=== PATIENT | female | born 2000 | race African-American/Black ===

== ENCOUNTER 2025-01-04 08:42 | Outpatient (REF) | payer MEDICAID, SELFPAY ==
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
--- OUTSIDE RECORDS SUMMARY | 2025-01-04 08:57 | XMS_ITS | Encounter Summary ---
Author Organization [employer] Address [address] [facility] [address] [place] [address] Care Team Providers Care Hog Cutter Name Role Phone Tucker Stern MD Primary Care Prov ider Encounter Details Date Type Department Care Team (Latest Contact Info) Description 01/03/2025 Travel Social History Tobacco Use Types Packs/Day Years Used Date Smoking Tobacco: Never Smokeless Tobacco: Never Alcohol Use Standard Drinks/Week Comments Yes 0 (1 standard drink = 0.6 oz pur e alcohol) socially Comments No Sex and Gender Information Value Date Recorded Sex Assigned at Female 01/02/2025 3:13 PM EDT Legal Sex Female 12:11 PM EST Gender Identity Female 01/02/2025 3:13 PM EDT Sexual Orientation Don't know 01/02/2025 3: 13 PM EDT documented as of this encounter Plan of Treatment Not on file documented as of this encounter Visit Diagnoses Not on filedocumented in this encounter Care Teams Hog Cutter Relationship Specialty Start Date End Date Tucker Stern MD [address] [place] [id number] PCP - General Internal Medicine 01/03/25 documented as of this encounter
[2025-01-04 14:13] LABS: MANUAL DIFF FLAG NO
[2025-01-04 14:21] LABS: Basophils Percent Auto 0.4 % (0-2); Eosinophils Percent Auto 0.5 % (0-4); Hematocrit 37.1 % (37.0-47.0); Hemoglobin 12.5 g/dl (12.0-16.0); Imm Gran Abs Auto 0.01 X10*3/uL (0.00-0.03); Imm Gran Pct Auto 0.2 % (0.0-0.4); Lymphocytes Absolute Auto 2.4 X10*3/uL (1.2-4.9); Lymphocytes Percent Auto 42.7 % (20-40); Mean Corpuscular HGB Conc 33.7 g/dl (31.0-35.0); Mean Corpuscular Hemoglobin 33.2 pg (27.0-33.0); Mean Corpuscular Volume 98.4 fL (80.0-98.0); Mean Platelet Volume 9.8 fL (9.4-12.3); Monocytes Absolute Auto 0.6 X10*3/uL (0.1-1.2); Neutrophils Absolute Auto 2.6 x10*3/uL (2.0-8.3); Neutrophils Percent Auto 46.2 % (45-73); Platelet Count 238 X10*3/uL (160-400); Red Blood Count 3.77 X10*6/uL (4.20-5.50); Red Cell Distribution Width 11.7 % (11.0-16.0); White Blood Count 5.6 X10*3/uL (4.8-10.8)
[2025-01-04 14:27] LABS: Estimated Average Glucose 82 mg/dL; Hemoglobin A1C 85.8112 umol/L; Hemoglobin A1c % 4.5 % (<6.0); Total Hemoglobin (HGBA1C) 3332.2996 umol/L
[2025-01-04 14:37] LABS: Alanine Aminotransferase 21 U/L (0-31); Albumin Level 4.3 g/dL (3.5-5.0); Alkaline Phosphatase 57 U/L (39-117); Anion Gap 8 (12-20); Aspartate Amino Transferase 38 U/L (5-31); Bilirubin Total 0.8 mg/dL (0.0-1.0); Blood Urea Nitrogen 8 mg/dL (9-16); Calcium 9.6 mg/dL (8.4-10.2); Carbon Dioxide 27 mmol/L (22-29); Chloride 106 mmol/L (96-108); Cholesterol 106 mg/dL (<200); Estimated Glomerular Filt Rate > 60; Glucose Random 90 mg/dL (60-115); HDL Cholesterol 49 mg/dL (>40); LDL Cholesterol Calculated 49 mg/dL (<100); Potassium 3.8 mmol/L (3.3-5.1); Sodium 137 mmol/L (135-145); Total Protein 7.8 g/dL (6.5-8.0); Triglycerides 41 mg/dL (<150)
[2025-01-04 14:45] LABS: TSH reflex Free T4 0.65 uIU/mL (0.32-4.0)
[2025-01-04 14:55] LABS: HBS Num1 981.26 mIU/mL (0-7.99); HBc Num1 0.21 S/CO (0.00-0.79); HBsAGNum1 0.38 S/CO (0.00-0.99); HIV AB/AG Nonreactive (Nonreactive); HIV Num 1 0.07 S/CO (0.00-0.99); Hepatitis B Core Antibody Nonreactive (Nonreactive); Hepatitis B Surface Antigen Negative (Negative); ~HepC Num1 0.11 S/CO (0.00-0.79); ~Hepatitis B Surface Antibody REACTIVE (Nonreactive); ~Hepatitis C Antibody Nonreactive (Nonreactive)
[2025-01-07 18:28] LABS: TS Negative Control Passed; TS Panel A 0; TS Panel B 0; TS Positive Control Passed; TSpotTB Negative (Negative)
[2025-01-08 07:59] LABS: Hepatitis A Antibody IgM 0.14 Index (0-0.79); ~Hepatitis A Antibody IgM Nonreactive (Nonreactive)
[2025-01-08 22:04] LABS: Varicella IgG Antibody <1.00 S/CO
== END 2025-01-04 08:43 | disposition home or self-care (01) ==
LOC: HO.CHCLDS 08:42
PROVIDERS: Visit Provider Internal Medicine
DX: Z00.00 Encounter for general adult medical examination without abnormal findings (principal); Z11.1 Encounter for screening for respiratory tuberculosis
CPT/HCPCS: 36415; 80053; 80061; 83036; 84443; 85025; 86481; 86704; 86706; 86709; 86735; 86762; 86765; 86787; 86803; 87340; 87389

== ENCOUNTER 2025-03-05 10:58 | Outpatient (REF) | payer MEDICAID, SELFPAY ==
[2025-03-06 08:23] LABS: HBS Num1 > 1000.00 mIU/mL (0-7.99); ~Hepatitis B Surface Antibody REACTIVE (Nonreactive)
== END 2025-03-05 10:59 | disposition home or self-care (01) ==
LOC: HO.CHCLDS 10:58
PROVIDERS: Visit Provider Internal Medicine
DX: Z12.4 Encounter for screening for malignant neoplasm of cervix (principal)
CPT/HCPCS: 36415; 86706; 87491; 87591; 87626; 87661; 88175

== ENCOUNTER 2025-03-05 12:25 | Outpatient (REF) | payer MEDICAID, SELFPAY ==
[2025-03-06 21:58] LABS: C. trachomatis RNA TMA NOT DETECTED (NOT DETECTED); N. gonorrhoeae RNA TMA NOT DETECTED (NOT DETECTED)
[2025-03-06 22:08] LABS: Trichomonas (NAAT) NOT DETECTED (NOT DETECTED)
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
--- OUTSIDE RECORDS SUMMARY | 2025-03-26 13:36 | XMS_ITS | Patient Health Record ---
Author Organization [facility] Address [address], [place] [id number] Care Team Providers Care Warp Starter Name Role Phone NO, PCP Primary Care Provider Allergies No Known Allergies Reason For Referral No Information Plan Of Treatment No Information Insurance Providers Payer Name Payer Address Payer Phone Subscriber Number Group Number Insured Name Patient Relationship to Insured Coverage Start Date Coverage End Date [facility] Dental Program [address] Attn Claims [email or web address] [phone] [id number] Little Myers Self - patient is the insured 2 [employer] Plan of [place] [address] [email or web address] [phone] [id number] Little Myers Self - patient is the insured 2 Medical (General) History Medical History History ICD Code Healthy
== END 2025-03-05 12:26 | disposition home or self-care (01) ==
LOC: HO.LNP 12:25
PROVIDERS: Visit Provider Family Medicine
DX: Z13.89 Encounter for screening for other disorder (principal)
CPT/HCPCS: 87491; 87591; 87626; 87661; 88175

== ENCOUNTER 2025-08-30 08:44 | Outpatient (AMB) | payer OTHER, SELFPAY ==
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
[2025-08-30 08:54] VITALS: BP 112/59; PULSE 75; O2SAT 99; BMI 30.4
--- OUTSIDE RECORDS SUMMARY | 2025-08-30 08:58 | XMS_ITS | Patient Health Record ---
Author Organization [facility] Address [address] [place] [address] Care Team Providers Care Soap Grinder Name Role Phone NO, PCP Primary Care Provider Allergies No Known Allergies Reason For Referral No Information Plan Of Treatment No Information Insurance Providers Payer Name Payer Address Payer Phone Subscriber Number Group Number Insured Name Patient Relationship to Insured Coverage Start Date Coverage End Date [facility] Dental Program [address] Attn Claims [employer] [phone] [phone] [id number] Little Myers Self - patient is the insured 2 [employer] Plan of [place] [address] [employer] [phone] [id number] Little Myers Self - patient is the insured 2 Medical (General) History Medical History History ICD Code Healthy
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
--- OUTSIDE RECORDS SUMMARY | 2025-08-30 08:58 | XMS_ITS | Encounter Summary ---
Author Organization [employer] Address [address] [facility] [address] [place] [address] Care Team Providers Care Wig Sales Consultant Name Role Phone Tucker Stern MD Primary Care Prov ider Encounter Details Date Type Department Care Team (Late st Contact Info) Description 07/19/2025 Telephone [facility] MEDICINE [address] [place] [address] Tucker Stern MD [address] [place] [address] Social History Tobacco Use Types Packs/Day Years [...] is your housing situation today? I have riki lau 04/30/[address] you [...] PM EDT documented as of this encounter Miscellaneous Notes * Telephone Encounter - Sabine Murrieta - 07/19/2025 9:39 AM EST TC from calling stating that her insurance doesn't cover MR and she dosne tknow what to do. PCP Dr. Rob documented in this encounter Plan of Treatment Not on file documented as of this encounter Visit Diagnoses Not on filedocumented in this encounter Additional Health Concerns Assessment Noted Time PHQ-9 Depression Total Score: 0 03/05/20 9:50 AM EDT documented as of this encounter Care Teams Wig Sales Consultant Relationship Specialty Start Date End Date Tucker Stern MD [address] [place] [phone] PCP - General Internal Medicine 01/03/25 documented as of this encounter
== END 2025-08-30 09:21 | disposition home or self-care (01) ==
PROVIDERS: PCP Internal Medicine; Visit Provider Nurse Practitioner Family
DX: V89.2XXA Person injured in unspecified motor-vehicle accident, traffic, initial encounter (principal); M54.2 Cervicalgia; M54.9 Dorsalgia, unspecified; G89.29 Other chronic pain; M54.31 Sciatica, right side; M53.3 Sacrococcygeal disorders, not elsewhere classified; S39.012A Strain of muscle, fascia and tendon of lower back, initial encounter; M54.16 Radiculopathy, lumbar region
CPT/HCPCS: 99204